=== PATIENT | male | born 1950 | race Caucasian/White ===

== ENCOUNTER 2017-04-22 08:34 | Emergency (ER) | payer OTHER | END 2017-04-22 09:50 | disposition home or self-care (01) | LOC: ER 09:50 | DX: M62.830 Muscle spasm of back (principal); I10 Essential (primary) hypertension; Z86.73 Personal history of transient ischemic attack (TIA), and cerebral infarction without residual deficits; Z98.890 Other specified postprocedural states; Z88.7 Allergy status to serum and vaccine | CPT/HCPCS: 99285 ==